=== PATIENT | male | born 1960 | race Caucasian/White ===

== ENCOUNTER 2018-03-02 11:10 | Emergency (ER) | payer OTHER ==
[2018-03-02 11:32] VITALS: BP 119/76; TEMP 96.8; O2SAT 99
--- NOTE | 2018-03-02 12:09 | ED.PDOC ---
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 HE AND 3 OTHERS WERE LIFTING AND TRANSFERRING THE PT, AT WHICH TIME HE FELT A STRESS IN HIS BACK. LAST NIGHT AND THIS AM, HE HAS LUMBAR PAIN. PRESENT AT REST BUT WORSE WITH MOVEMENT. PAIN IS IN BL LUMBAR PARASPINOUS BUT NO RADICULOPATHY. DENIES ANY H/O LBP OR BACK PROBLEMS. Quality/Severity: moderate Back Pain Location: lumbar spine, paraspinous muscles Method of Injury/Prior Injury: other - BENDING AND LIFTING. Improving Factors: immobilization Worsening Factors: movement Associated Symptoms: lower back pain Allergies/Adverse Reactions: Allergies NO KNOWN ALLERGY Allergy (Verified 03/02/18 11:20) Review of Systems - Review of Systems Constitutional: States: no symptoms reported EENTM: States: no symptoms reported Respiratory: States: no symptoms reported Cardiology: States: no symptoms reported Gastrointestinal/Abdominal: States: no symptoms reported Genitourinary: States: no symptoms reported Musculoskeletal: States: see HPI, back pain. Denies: neck pain Skin: States: no symptoms reported Neurological: Denies: paresthesia, pre-existing deficit, tingling, weakness Endocrine: States: no symptoms reported Hematologic/Lymphatic: States: no symptoms reported All other Systems: Reviewed and Negative Past Medical History (General) - Patient Medical History Hx Stroke: No Hx Dementia: No Hx of COPD: No Hx Cardiac Disorders: No Hx Congestive Heart Failure: No Hx Hypertension: Yes Hx Thyroid Disease: No Hx Diabetes: No Hx Renal Disease: No Surgical History: no surgical history - Vaccination History Hx Tetanus, Diphtheria Vaccination: No Hx Influenza Vaccination: Yes Hx Pneumococcal Vaccination: No Immunizations Up to Date: No - Social History Hx Tobacco Use: No Hx Chewing Tobacco Use: No Hx Alcohol Use: No Hx Substance Use: No Hx Substance Use Treatment: No Hx Depression: No Feels Threatened In Home Enviroment: No Feels Threatened In a Relationship: No Hx Physical Abuse: No Hx Emotional Abuse: No Hx Suspected Abuse: No - Activities of Daily Living Hospice Agency (if applicable):: None - Female History Patient is a Female of Child Bearing Age (10 -59 yrs old): No Patient : No Family Medical History - Family History Mother Family History: Unknown Physical Exam - Physical Exam General Appearance: Alert, Well Hydrated Eyes, Ears, Nose, Throat Exam: PERRL/EOMI, normal ENT inspection Neck Exam: full range of motion, normal inspection Cardiovascular/Respiratory: no JVD, no respiratory distress Gastrointestinal/Abdominal: non tender, soft Back Exam: no CVA tenderness, no vertebral tenderness, muscle spasm, other - LUMBAR PARASPINOUS TTP BL. NEG SLR. NEG BL DILLON AND FADIR EXCEPT R FADIR CAUSE MILD LBP. NO RADICULOPATHY. Extremity Exam: no evidence of injury, normal range of motion, non-tender Neurologic: sap mobility architect II-XII nml as tested, no motor/sensory deficits, alert, normal mood/affect Skin Exam: normal color Progress - Progress Progress: 03/02/18 13:01 LUMBAR X-RAY SHOWS L5/S1 DDD AND FACET ARTHROSIS. NO RADICULOPATHY SX THUS TREATING FOR ACUTE LUMBAR MUSCULOSKELETAL STRAIN AT THIS POINT. SAFE FOR DC BACK TO WORK ON LIGHT DUTY. PT DECLINES OFFER FOR MUSCLE RELAXANTS OR NSAIDS. - EKG/XRAY/CT CT Ordered: No CT Interpretation Call Back: No Departure - Departure Clinical Impression: Degeneration of lumbar intervertebral disc, Facet arthropathy, lumbar Acute myofascial strain of lumbar region Qualifiers: Encounter type: initial encounter Qualified Code(s): S39.012A - Strain of muscle, fascia and tendon of lower back, initial encounter Acute lumbar back pain Qualifiers: Back pain laterality: bilateral Sciatica presence: without sciatica Qualified Code(s): M54.5 - Low back pain Disposition: Discharge to Home or Self Care Condition: Good Departure Forms: ED Discharge - Pt. Copy, Patient Portal Self Enrollment Instructions: DI for Low Back Pain Diet: resume usual diet Activity: no pushing/pulling with affected limb Referrals: Mando Rodríguez MD [Primary Care Provider] - 1-2 Weeks Additional Instructions: Please avoid lifting more than 10 lbs for 2 weeks. Please see your regular doctor or return to the ER if anything should change or worsen.
--- NOTE | 2018-03-02 12:31 | RAD ---
Three-view lumbar spine Indication: ACUTE LUMBAR PAIN/STRAIN Comparison: None. Impression: Vertebral body height maintained without fracture or subluxation. Mild disc space height loss at L5-S1 with facet arthrosis at this level. Electronically signed by: Oren Ortez MD 03/02/2018 12:29 PM [facility]
== END 2018-03-02 13:16 | disposition home or self-care (01) ==
LOC: ER 11:10
DX: S39.012A Strain of muscle, fascia and tendon of lower back, initial encounter (principal); M51.36 Other intervertebral disc degeneration, lumbar region; M46.96 Unspecified inflammatory spondylopathy, lumbar region; I10 Essential (primary) hypertension; X50.0XXA Overexertion from strenuous movement or load, initial encounter; Y99.0 Civilian activity done for income or pay; Y92.69 Other specified industrial and construction area as the place of occurrence of the external cause